=== PATIENT | male | born 1970 | race American Indian/Alaskan Native ===

== ENCOUNTER → 2016-09-02 | Outpatient (CLI) | payer OTHER, MEDICAID | LOC: FIMAGING 13:18 | PROVIDERS: ATTEND Physician Assistant | DX: M53.82 Other specified dorsopathies, cervical region (principal); G82.20 Paraplegia, unspecified; M40.202 Unspecified kyphosis, cervical region; M99.71 Connective tissue and disc stenosis of intervertebral foramina of cervical region ==

== ENCOUNTER 2016-12-13 12:26 | Emergency (ER) | payer OTHER, MEDICAID ==
[2016-12-13 12:34] VITALS: BP 120/91; PULSE 74; RESP 18; TEMP 97.9; O2SAT 95
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
== END 2016-12-13 13:22 | disposition home or self-care (01) ==
DX: Z76.0 Encounter for issue of repeat prescription (principal)

== ENCOUNTER 2016-12-19 12:23 | Emergency (ER) | payer OTHER, MEDICAID ==
[2016-12-19 12:34] VITALS: O2SAT 98
[2016-12-19] MEDS ORDERED: NS 1,000 ML IV ONE (12:51)
[2016-12-19 13:20] LABS: % IMMATURE GRANULYOCYTES 0.4 % (0.0-1.1); ABSOLUTE IMMATURE GRANULOCYTES 0.03 10^3/uL (0.00-0.10); ADD DIFF? NO; ADD MORPH? NO; ADD SCAN? NO; ATYPICAL LYMPHOCYTE FLAG 0 (0-99); FRAGMENT RBC FLAG 0 (0-99); HEMATOCRIT 44.6 % (40.0-51.0); HEMOGLOBIN 15.4 g/dL (13.7-17.5); LEFT SHIFT FLG 0 (0-99); LIPEMIA HEMOLYSIS FLAG 90 (0-99); MEAN CELL HEMOGLOBIN 31.6 pg (27.9-34.1); MEAN CELL HEMOGLOBIN CONCENTR. 34.5 g/dL (32.4-36.7); MEAN CELL VOLUME 91.6 fL (81.5-99.8); MEAN PLATELET VOLUME 9.1 fL (8.7-11.7); PLATELET CLUMPS FLAG 10 (0-99); PLATELET COUNT 280 10^3/uL (150-400); RED BLOOD CELL COUNT 4.87 10^6/uL (4.40-6.38); RED CELL DISTRIBUTION WIDTH 13.2 % (11.5-15.2)
[2016-12-19 13:32] LABS: ANION GAP 12 mEq/L (8-16); CALCIUM 9.4 mg/dL (8.5-10.4); CARBON DIOXIDE 19 mEq/l (22-31); CHLORIDE 107 mEq/L (97-110); CREATININE 0.6 mg/dL (0.7-1.3); GLOMERULAR FILTRATION RATE > 60; GLUCOSE 144 mg/dL (70-100); POTASSIUM 4.4 mEq/L (3.5-5.2); SODIUM 138 mEq/L (134-144)
--- NOTE | 2016-12-19 13:33 | EDPHY ---
H & P Stated Complaint: Bright red blood per rectum Time Seen by Provider: 12/19/16 12:51 HPI/ROS: CHIEF COMPLAINT: Bright red blood per rectum HISTORY OF PRESENT ILLNESS: The patient presents the ED after a single episode of bright red blood per rectum. The patient is currently wheelchair-bound secondary to T4 paraplegia. The patient takes no aspirin or anticoagulants. The patient has no history of inflammatory bowel disease. He does have a history of rectal bleeding from hemorrhoids in the past. 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 The patient does occasionally have to perform digital stimulation for alleviating his constipation. The patient reported approximately a half a cup of bright red blood per rectum at 8 o'clock this morning. The patient has not had recurrent hematochezia. REVIEW OF SYSTEMS: A comprehensive 10 point review of systems is otherwise negative aside from elements mentioned in the history of present illness. 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 insulin diabetic - Social History Smoking Status: Never smoked - Physical Exam Exam: General Appearance: Alert, no distress Eyes: Pupils equal and round no pallor or injection ENT, Mouth: Mucous membranes moist Respiratory: There are no retractions, lungs are clear to auscultation Cardiovascular: Regular rate and rhythm Gastrointestinal: Soft nontender, palpable baclofen pump noted on anterior abdominal wall Rectal: Brown stool, no bleeding hemorrhoid, no obvious internal source of bleeding noted on digital exam Neurological: Chronic weakness lower extremity secondary to known T4 spinal cord injury Skin: Warm and dry, no rashes Musculoskeletal: Neck is supple nontender Extremities: symmetrical, full range of motion Constitutional: Initial Vital Signs Temperature (C) 36.6 C 12/19/16 12:29 Heart Rate 121 H 12/19/16 12:29 Respiratory Rate 17 12/19/16 12:29 Blood Pressure 137/92 H 12/19/16 12:29 O2 Sat (%) 98 12/19/16 12:29 O2 Delivery Mode Room Air Allergies/Adverse Reactions: ceftriaxone sodium [From Rocephin] Allergy (Severe, Verified 12/13/16 12:31) Anaphylaxis Penicillins Allergy (Severe, Verified 12/13/16 12:31) Swelling/neck,face,throat Home Medications: Medication Instructions Recorded Insulin 03/26/13 Insulin Aspart 04/19/13 traZODONE 08/05/15 Baclofen 08/15/15 Baclofen [Baclofen 20 mg (*)] 20 mg PO TID #30 tab 12/13/16 Medical Decision Making ED Course/Re-evaluation: The patient presents to the ED after a episode of resolved hematochezia at 8 o' clock this morning. In the ED there is no active bleeding. The patient is hemodynamically stable. His laboratory studies are unrevealing. The patient's hematocrit is stable. His occult blood is negative. At this point time I do feel the patient can be discharged home as he has no active bleeding. It is certainly possible he had some transient rectal trauma from digital stimulation verses constipation. The patient is comfortable returning to the emergency department for any recurrent hematochezia or other concerns. Differential Diagnosis: Differential diagnosis considered includes hematochezia, external hemorrhoid, internal hemorrhoid, upper GI bleed, lower GI bleeding, rectal laceration - Data Points Laboratory Results: Laboratory Results 12/19/16 13:05 12/19/16 13:05 12/19/16 12/19/16 12/19/16 Unknown 13:05 13:05 WBC RBC Hgb Hct MCV MCH MCHC RDW Plt Count MPV Neut % (Auto) Lymph % (Auto) [place] % (Auto) Eos % (Auto) Baso % (Auto) Nucleat RBC Rel Count Absolute Neuts (auto) Absolute Lymphs (auto) Absolute Monos (auto) Absolute Eos (auto) Absolute Basos (auto) Absolute Nucleated RBC Immature Gran % Immature Gran # PT 12.8 SEC SEC (12.0-15.0) INR 0.97 (0.83-1.16) APTT 27.2 SEC SEC (23.0-38.0) Sodium 138 mEq/L mEq/L (134-144) Potassium 4.4 mEq/L mEq/L (3.5-5.2) Chloride 107 mEq/L mEq/L (97-110) Carbon Dioxide 19 mEq/l L mEq/l (22-31) Anion Gap 12 mEq/L mEq/L (8-16) BUN 12 mg/dL mg/dL (7-23) Creatinine 0.6 mg/dL L mg/dL (0.7-1.3) Estimated GFR > 60 Glucose 144 mg/dL H mg/dL (70-100) Calcium 9.4 mg/dL mg/dL (8.5-10.4) Stool Occult Bld Scrn NEGATIVE (NEGATIVE) 12/19/16 13:05 WBC 8.07 10^3/uL 10^3/uL (3.80-9.50) RBC 4.87 10^6/uL 10^6/uL (4.40-6.38) Hgb 15.4 g/dL g/dL (13.7-17.5) Hct 44.6 % % (40.0-51.0) MCV 91.6 fL fL (81.5-99.8) MCH 31.6 pg pg (27.9-34.1) MCHC 34.5 g/dL g/dL (32.4-36.7) RDW 13.2 % % (11.5-15.2) Plt Count 280 10^3/uL 10^3/uL (150-400) MPV 9.1 fL fL (8.7-11.7) Neut % (Auto) 59.1 % % (39.3-74.2) Lymph % (Auto) 34.1 % % (15.0-45.0) [place] % (Auto) 3.7 % L % (4.5-13.0) Eos % (Auto) 2.0 % % (0.6-7.6) Baso % (Auto) 0.7 % % (0.3-1.7) Nucleat RBC Rel Count 0.0 % % (0.0-0.2) Absolute Neuts (auto) 4.77 10^3/uL 10^3/uL (1.70-6.50) Absolute Lymphs (auto) 2.75 10^3/uL 10^3/uL (1.00-3.00) Absolute Monos (auto) 0.30 10^3/uL 10^3/uL (0.30-0.80) Absolute Eos (auto) 0.16 10^3/uL 10^3/uL (0.03-0.40) Absolute Basos (auto) 0.06 10^3/uL 10^3/uL (0.02-0.10) Absolute Nucleated RBC 0.00 10^3/uL 10^3/uL (0-0.01) Immature Gran % 0.4 % % (0.0-1.1) Immature Gran # 0.03 10^3/uL 10^3/uL (0.00-0.10) PT INR APTT Sodium Potassium Chloride Carbon Dioxide Anion Gap BUN Creatinine Estimated GFR Glucose Calcium Stool Occult Bld Scrn Medications Given: Discontinued Medications Sodium Chloride (Ns) 1,000 mls @ 0 mls/hr IV ONCE ONE; Wide Open PRN Reason: Protocol Stop: 12/19/16 12:52 Last Admin: 12/19/16 13:15 Dose: 1,000 mls Departure - Departure Disposition: Home, Routine, Self-Care Clinical Impression: Hematochezia Condition: Good Instructions: Rectal Bleeding (ED) Additional Instructions: 1. Please return to the emergency department for any recurrent bleeding, severe abdominal pain, lightheadedness or other concerns. 2. Please follow up with your primary care provider as scheduled. Referrals: Leonora Grove, PAC [Primary Care Provider] - As per Instructions
[2016-12-19 13:40] LABS: INR 0.97 (0.83-1.16); PROTIME(PATIENT) 12.8 SEC (12.0-15.0)
[2016-12-19 13:41] LABS: APTT 27.2 SEC (23.0-38.0)
[2016-12-19 14:01] VITALS: BP 132/88; PULSE 114; RESP 16; TEMP 98.2
== END 2016-12-19 14:01 | disposition home or self-care (01) ==
DX: K92.1 Melena (principal); E11.9 Type 2 diabetes mellitus without complications; Z79.4 Long term (current) use of insulin

== ENCOUNTER → 2016-12-25 | Outpatient (CLI) | payer OTHER, MEDICAID | LOC: FIMAGING 11:42 | DX: Z01.818 Encounter for other preprocedural examination (principal) ==

== ENCOUNTER 2017-03-10 12:16 | Emergency (ER) | payer OTHER, MEDICAID ==
[2017-03-10 12:34] VITALS: RESP 16
[2017-03-10 12:52] LABS: COLOR YELLOW; LEUKOCYTE ESTERASE,URINE 1+ (NEGATIVE); NITRITE,URINE NEGATIVE (NEGATIVE)
[2017-03-10 13:00] LABS: MUCUS TRACE /lpf (NONE-1+); WBC,URINE 50-182 /hpf (0-3)
--- NOTE | 2017-03-10 14:00 | EDPHY ---
H & P Time Seen by Provider: 03/10/17 13:40 HPI/ROS: CHIEF COMPLAINT: Concerns regarding urinary tract infection HISTORY OF PRESENT ILLNESS: This is a 46-year-old male who is a T4 paraplegic presenting with concerns regarding a urinary tract infection. Patient recently had a urinary tract infection and was given a 7 day course of levofloxacin. He reports that he had a 2 day break in his antibiotic course. His symptoms did not improve. He continues to have some discomfort in the perineal area. He discussed the situation with the urologist at [facility]. He has been advised to be using bladder irrigation to control his infection. Patient does self-catheterize. Despite this treatment, he reports pain in his perineum. He has had no documented fevers. No chills. No diaphoresis. No tachycardia. No vomiting. No diarrhea. No lightheadedness. REVIEW OF SYSTEMS: Aside from elements discussed in the HPI, a comprehensive 10-point review of systems was reviewed and is negative. PAST MEDICAL HISTORY: Paraplegia, bladder augmentation, insulin-dependent diabetic. SOCIAL HISTORY: Nonsmoker. VITAL SIGNS: see nurse's notes. GENERAL: Well-developed, well-nourished, in no acute distress. Patient is in wheelchair. HEENT: Normal, no discharge or icterus, moist mucous membranes. Neck: supple, FROM. LUNGS: Clear to auscultation. CARDIAC: Regular rate and rhythm. ABDOMEN: Soft, nontender, nondistended, bowel sounds normal. BACK: No CVA tenderness. EXTREMITIES: No edema. NEURO: Alert and oriented. SKIN: Warm and dry, no rash. Smoking Status: Never smoked Constitutional: Initial Vital Signs Temperature (C) 37 C 03/10/17 12:32 Heart Rate 93 03/10/17 12:32 Respiratory Rate 16 03/10/17 12:32 Blood Pressure 124/85 H 03/10/17 12:32 O2 Sat (%) 99 03/10/17 12:32 O2 Delivery Mode Room Air Allergies/Adverse Reactions: ceftriaxone sodium [From Rocephin] Allergy (Severe, Verified 03/10/17 12:36) Anaphylaxis Penicillins Allergy (Severe, Verified 03/10/17 12:36) Swelling/neck,face,throat Home Medications: Medication Instructions Recorded Insulin 03/26/13 Insulin Aspart 04/19/13 traZODONE 08/05/15 Baclofen 08/15/15 METHENAMINE MANDELATE 03/10/17 levOFLOXACIN [Levofloxacin] 750 mg PO DAILY #14 tablet 03/10/17 MDM/Departure - [facility] [place] Medications Given: Discontinued Medications Levofloxacin (Levaquin) 750 mg PO EDNOW ONE PRN Reason: Protocol Stop: 03/10/17 13:57 Last Admin: 03/10/17 14:13 Dose: 750 mg ED Course/Re-evaluation: Urinalysis was obtained, with many white cells. No bacteria seen. This will be sent for culture. Patient was given a 14 day course of levofloxacin. We also discussed at length the need for follow-up with the urologist in the [place] area. Patient may need to be on daily suppressive therapy. Patient looks well. No evidence for pyelonephritis, sepsis, urosepsis, kidney stone, or genital infection. - Depart Disposition: Home, Routine, Self-Care Clinical Impression: Cystitis Urinary tract infection Qualifiers: Urinary tract infection type: acute cystitis Hematuria presence: without hematuria Qualified Code(s): N30.00 - Acute cystitis without hematuria Condition: Good Instructions: Urinary Tract Infection in Men (ED) Additional Instructions: 1. The urine today will be sent for culture. Your previous Klebsiella infections were sensitive to levofloxacin. 2. Please take levofloxacin 750 mg daily for 14 days. 3. Please follow up with a urologist here in [place]. You been given the name of Dr. Moshe Chaney, who was on-call today for rest for Urology. You may also try to contact Dr. Yao Hernandez if you have seen him previously. 4. Please return to the emergency department if you're not improving, especially if he develops fevers, sugars which are difficult to control, nausea , vomiting, back pain, or other concerns. Prescriptions: levOFLOXACIN [Levofloxacin] 750 mg PO DAILY #14 tablet Referrals: Leonora Grove, PAC [Primary Care Provider] - As per Instructions
[2017-03-10 14:21] VITALS: BP 121/80; PULSE 89; TEMP 98.6; O2SAT 98
== END 2017-03-10 14:18 | disposition home or self-care (01) ==
DX: N30.00 Acute cystitis without hematuria (principal); E11.9 Type 2 diabetes mellitus without complications; B96.89 Other specified bacterial agents as the cause of diseases classified elsewhere; Z79.4 Long term (current) use of insulin

== ENCOUNTER 2017-03-31 11:48 | Emergency (ER) | payer OTHER, MEDICAID ==
[2017-03-31 13:10] LABS: COLOR RED; LEUKOCYTE ESTERASE,URINE 1+ (NEGATIVE); NITRITE,URINE POSITIVE (NEGATIVE)
[2017-03-31 13:15] LABS: BACTERIA 4+ /hpf (NONE SEEN); MUCUS 1+ /lpf (NONE-1+); WBC,URINE 50-182 /hpf (0-3)
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
[2017-03-31] MEDS ORDERED: CEPHALEXIN 500 MG CAP PO ONE (13:41)
[2017-03-31 13:52] VITALS: BP 119/78; PULSE 81; RESP 16; TEMP 98.4; O2SAT 97
== END 2017-03-31 13:52 | disposition home or self-care (01) ==
DX: N30.01 Acute cystitis with hematuria (principal); E11.9 Type 2 diabetes mellitus without complications; B96.1 Klebsiella pneumoniae [K. pneumoniae] as the cause of diseases classified elsewhere; Z79.4 Long term (current) use of insulin

== ENCOUNTER 2017-04-20 14:42 | Emergency (ER) | payer OTHER, MEDICAID ==
[2017-04-20 14:59] VITALS: RESP 18; TEMP 99.3; O2SAT 97
--- NOTE | 2017-04-20 17:39 | EDPHY ---
H & P Time Seen by Provider: 04/20/17 17:06 HPI/ROS: CHIEF COMPLAINT: Urinary frequency, medication refill HISTORY OF PRESENT ILLNESS: Patient is a 46-year-old male paraplegic who self cath with recurrent UTI that presents emergency department with typical UTI symptoms. He has been seen by me previously for similar symptoms. Patient states he has been having pressure and sweats. He denies fever. No vomiting. No pain. Patient reports that he has the causative agent from an outpatient office, enterococcus. He does not have sensitivities. REVIEW OF SYSTEMS: My complete review of systems is negative except as mentioned in the HPI. Past Medical/Surgical History: Includes T4 paraplegia, diabetes Past surgical history: Includes bladder augmentation, baclofen pump Social history: The patient denies alcohol drug use Smoking Status: Never smoked Physical Exam: Vitals noted. 37.4. GENERAL: Wheelchair bound. Well-appearing. no acute distress, alert. HEENT: Eyes normal to inspection, normal pharynx, no signs of dehydration. NECK: No thyromegaly, no lymphadenopathy, supple. RESPIRATORY: Clear to auscultation bilaterally, no rales, rhonchi or wheezing. CVS: Regular rate and rhythm, no rubs, murmurs, or gallops. ABDOMEN: Soft, nontender, nondistended, no organomegaly. Right lower baclofen pump. BACK: Normal to inspection, no CVA tenderness. SKIN: Normal color, no rash, warm, dry. No pallor. EXTREMITIES: No pedal edema, no calf tenderness, no Homans sign or cords, no joint swelling. NEURO/PSYCH: Alert and oriented x3, normal mood and affect. Wheelchair bound. Uses upper extremities. Constitutional: Initial Vital Signs Temperature (C) 37.4 C 04/20/17 14:56 Heart Rate 85 04/20/17 14:56 Respiratory Rate 18 04/20/17 14:56 Blood Pressure 146/99 H 04/20/17 14:56 O2 Sat (%) 97 04/20/17 14:56 O2 Delivery Mode Room Air Allergies/Adverse Reactions: ceftriaxone sodium [From Rocephin] Allergy (Severe, Verified 03/31/17 11:52) Anaphylaxis Penicillins Allergy (Severe, Verified 03/31/17 11:52) Swelling/neck,face,throat Home Medications: Medication Instructions Recorded Insulin 03/26/13 Insulin Aspart 04/19/13 traZODONE 08/05/15 Nitrofurantoin Macrobid [Macrobid] 100 mg PO BID #14 cap 04/20/17 Medical Decision Making ED Course/Re-evaluation: I discussed etiologies with the patient. Patient does not want to give a repeat urine in the emergency department as he states he has the results. I paged Infectious Disease and spoke with Dr. Key Hercules. Because we do not have sensitivities, she recommended the patient be placed on amoxicillin. However it is noted that he has a penicillin allergy. He will be placed on Macrobid. It is noted that he has been on Macrobid previously with some resistance. Patient was given a prescription of amoxicillin. He will follow up with his physician tomorrow to determine sensitivities. He was also given a prescription of Pyridium. He is given warnings prior to leaving. Differential Diagnosis: My differential includes but is not limited to urinary tract infection, cystitis , pyelonephritis, bacteremia, sepsis Departure - Departure Disposition: Home, Routine, Self-Care Clinical Impression: Urinary tract infection Qualifiers: Urinary tract infection type: acute cystitis Hematuria presence: without hematuria Qualified Code(s): N30.00 - Acute cystitis without hematuria Condition: Good Instructions: Urinary Tract Infection in Men (ED) Additional Instructions: You need to call your physician's office tomorrow to find out the sensitivities of your infection. In the meantime you been placed on amoxicillin at the recommendation of Dr. Key Hercules from Infectious Disease. Return with worsening symptoms or concerns. Referrals: Leonora Grove, PAC [Primary Care Provider] - 1 day without fail Prescriptions: Nitrofurantoin Macrobid [Macrobid] 100 mg PO BID #14 cap
[2017-04-20] MEDS ORDERED: NITROFURANTOIN 100MG PREPACK#2 BTL TAKEHOME ONE (17:43)
[2017-04-20] MEDS ORDERED: PHENAZOPYRIDINE HCL 200 MG TAB PO ONE (17:43)
[2017-04-20 18:05] VITALS: BP 136/78; PULSE 84
== END 2017-04-20 18:05 | disposition home or self-care (01) ==
DX: N30.00 Acute cystitis without hematuria (principal); E11.9 Type 2 diabetes mellitus without complications; Z79.4 Long term (current) use of insulin

== ENCOUNTER → 2017-04-28 | Outpatient (CLI) | payer OTHER, MEDICAID | LOC: FIMAGING 16:08 | DX: N31.9 Neuromuscular dysfunction of bladder, unspecified (principal) ==

== ENCOUNTER 2017-05-03 15:11 | Emergency (ER) | payer OTHER, MEDICAID ==
[2017-05-03 15:21] VITALS: TEMP 98.2
--- NOTE | 2017-05-03 16:24 | EDPHY ---
H & P Stated Complaint: UTI - hx, saw ID. 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 insulin diabetic - Social History Smoking Status: Never smoked Time Seen by Provider: 05/03/17 15:28 HPI/ROS: Chief complaint: Urinary tract infection History of present illness: This is a 46-year-old male who is a paraplegic, wheelchair-bound with history of recurrent urinary tract infections. He feels he has started to develope symptoms of another UTI with pressure and discomfort. He has had problems with urinary tract infections in the past. Most recently he was placed on Macrobid. He denies associated signs or symptoms including no fevers, no back pain, this feels like a typical urinary tract infection. Review of systems: A 10 point review of systems was obtained and other than described above was negative (Gilbert Bean) - Physical Exam Exam: General Appearance: Alert, nontoxic. Eyes: Pupils equal and round no injection. Respiratory: Chest is non tender, lungs are clear to auscultation. Cardiac: regular rate and rhythm Gastrointestinal: Abdomen is soft and non tender, no masses, bowel sounds normal. Musculoskeletal: Neck is supple and non tender. Extremities have full range of motion and are non tender. Skin: No rashes or lesions. Neurological: Alert and oriented x4. Moving upper extremities well. (Gilbert Bean) Constitutional: Initial Vital Signs Temperature (C) 36.8 C 05/03/17 15:19 Heart Rate 93 05/03/17 15:19 Respiratory Rate 16 05/03/17 15:19 Blood Pressure 112/75 05/03/17 15:19 O2 Sat (%) 99 05/03/17 15:19 O2 Delivery Mode Room Air Allergies/Adverse Reactions: ceftriaxone sodium [From Rocephin] Allergy (Severe, Verified 03/31/17 11:52) Anaphylaxis Penicillins Allergy (Severe, Verified 03/31/17 11:52) Swelling/neck,face,throat Home Medications: Medication Instructions Recorded Insulin 03/26/13 Insulin Aspart 04/19/13 traZODONE 08/05/15 Nitrofurantoin Macrobid [Macrobid] 100 mg PO BID #14 cap 04/20/17 Phenazopyridine HCl [Pyridium] 100 mg PO TID #6 tab 04/20/17 Baclofen 05/03/17 Cephalexin [Keflex] 500 mg PO TID 10 Days cap 05/03/17 Medical Decision Making ED Course/Re-evaluation: Patient is discussed with my secondary supervising physician Dr. Jennifer Lim. Patient presents to the emergency department concerned he is developing symptoms consistent with a urinary tract infection. Self catheterized urine is concerning for an infection. He has recently been on Macrobid. Review of most recent urine culture obtained shows that he has Klebsiella that is resistant to Macrobid. In discussion with him on choosing an appropriate antibiotic we have discussed Bactrim versus Keflex. He states Bactrim usually does not work. Although he has a severe reaction to Rocephin he has had penicillins recently and most importantly he has had Keflex recently and has tolerated it well. Most recent urine culture from beginning of March shows sensitivity to cephalosporins. He is started on Keflex for urinary tract infection. He is asked to follow up with his urologist for further evaluation and care. Urine culture is pending. Return precautions are given. Patient voiced understanding and agreement with plan. (Gilbert Bean) Differential Diagnosis: Included but not limited to acute cystitis, acute pyelonephritis, chronic urinary tract infection from self catheterization, (Gilbert Bean) Other Provider: The patient was evaluated and managed by the Physician Adjuster P[employer]/ Nurse Practitioner. I discussed the patient's presentation and course with the midlevel provider with them and agree with the evaluation. My co-signature indicates that I have reviewed this chart and I agree with the findings and plan of care as documented. I am the secondary supervising physician. (Jennifer Lim) Departure - Departure Disposition: Home, Routine, Self-Care Clinical Impression: Urinary tract infection Qualifiers: Urinary tract infection type: site unspecified Hematuria presence: with hematuria Qualified Code(s): N39.0 - Urinary tract infection, site not specified Condition: Good Instructions: Urinary Tract Infection in Men (ED) Additional Instructions: Follow-up with your urologist or primary care doctor for recheck If symptoms worsen or new symptoms develop return to the emergency room for recheck Referrals: Leonora Grove, PAC [Primary Care Provider] - As per Instructions Prescriptions: Cephalexin [Keflex] 500 mg PO TID 10 Days cap
[2017-05-03 16:28] VITALS: BP 120/80; PULSE 95; RESP 18; O2SAT 97
== END 2017-05-03 16:29 | disposition home or self-care (01) ==
DX: N39.0 Urinary tract infection, site not specified (principal); B96.89 Other specified bacterial agents as the cause of diseases classified elsewhere; E11.9 Type 2 diabetes mellitus without complications; Z79.4 Long term (current) use of insulin

== ENCOUNTER 2017-06-26 14:22 | Emergency (ER) | payer OTHER, MEDICAID ==
--- NOTE | 2017-06-26 14:33 | EDPHY ---
H & P Stated Complaint: UTI CONCERNS HPI/ROS: CHIEF COMPLAINT: Malodorous urine, lower abdominal discomfort HISTORY OF PRESENT ILLNESS: The patient is a 47 y/o male with paraplegia complaining of malodorous, cloudy urine and lower abdominal discomfort for the last few days. He self-caths and has been flushing frequently to treat symptoms without improvement. He started to feel generally ill with abdominal pressure that feels similar to prior UTIs, so he came to the ED for evaluation. He denies fever, back pain, or other symptoms. He has been on prophylactic antibiotics in the past, but states he has not been taking anything for the last month. He was prescribed Keflex in April and Macrobid in March of this year for UTIs. REVIEW OF SYSTEMS: A ten point review of systems was performed and is negative with the exception of the items mentioned in the HPI. Past medical history: 1. T4 paraplegia since 1996, wheelchair-bound 2. Recurrent UTIs 3. Insulin-dependent diabetes Past surgical history: 1. Bladder augmentation Family history: Noncontributory Social history: PCP: Leonora Grove at [facility]. [place] [facility] Prior medical records reviewed including ED visit in 05/03/17 for UTI. General Appearance: Alert. Vital signs reviewed. Heart rate 110. Eyes: Pupils equal and round, no conjunctival injection, no discharge. Anicteric. Neck: No lymphadenopathy. Respiratory: Lungs are clear to auscultation; no wheezes, rales, or rhonchi. Cardiovascular: Regular rate and rhythm; no murmur, rub, or gallop. Gastrointestinal: Abdomen is soft and nontender, no masses or organomegaly, bowel sounds normal. Skin: Warm and dry, no rashes on exposed skin, normal color. Back: No CVAT Extremities: No lower extremity edema, no calf tenderness or swelling. Neurological: Alert and oriented. Moving upper extremities easily and equally. Sitting in wheelchair. Psychiatric: Normal affect. - Personal History Current Tetanus Diphtheria and Acellular Pertussis (TDAP): Yes Tetanus Vaccine Date: 2013 - Medical/Surgical History Hx Asthma: No Hx Chronic Respiratory Disease: No Hx Diabetes: Yes Hx Cardiac Disease: No Hx Renal Disease: No Hx Cirrhosis: No Hx Alcoholism: No Hx HIV/AIDS: No Hx Splenectomy or Spleen Trauma: No Other PMH: t4 paraplegic-1997, IDDM; bladder augmentation; baclofen pump. insulin pump - Social History Smoking Status: Never smoked Constitutional: Initial Vital Signs Temperature (C) 36.5 C 06/26/17 14:27 Heart Rate 110 H 06/26/17 14:27 Respiratory Rate 16 06/26/17 14:27 Blood Pressure 116/76 06/26/17 14:27 O2 Sat (%) 96 06/26/17 14:27 O2 Delivery Mode Room Air Allergies/Adverse Reactions: ceftriaxone sodium [From Rocephin] Allergy (Severe, Verified 06/26/17 14:25) Anaphylaxis Penicillins Allergy (Severe, Verified 06/26/17 14:25) Swelling/neck,face,throat Home Medications: Medication Instructions Recorded Insulin 03/26/13 Insulin Aspart 04/19/13 traZODONE 08/05/15 Baclofen 05/03/17 Cephalexin [Keflex] 500 mg PO TID #30 cap 06/26/17 Medical Decision Making ED Course/Re-evaluation: This is a pleasant 47 y/o male with paraplegia at the T4 level who presents with standard UTI symptoms for him including malodorous urine and abdominal discomfort with pressure. He is not currently on antibiotics. He is afebrile here without obvious CVA tenderness, though exam limited by paraplegia. Plan for UA. UA indicative of UTI. I do not suspect pyelonephritis. He has self- catheterized for years and I do not question his technique. I do not suspect an intra-abdominal infection. He has successfully taken Keflex for UTI treatment ( in March of this year) and this will be prescribed today. Culture sent. He was tachycardic at triage, not at time of my exam and not at discharge. - Data Points Medications Given: Discontinued Medications Cephalexin (Keflex 500 Mg Prepack#4) 1 btl TAKEHOME EDNOW ONE PRN Reason: Protocol Stop: 06/26/17 15:49 Last Admin: 06/26/17 15:54 Dose: 1 btl Departure - Departure Disposition: Home, Routine, Self-Care Clinical Impression: Urinary tract infection Qualifiers: Urinary tract infection type: catheter-associated UTI Indwelling urinary catheter type: unspecified Encounter type: initial encounter Qualified Code(s): T83.511A - Infection and inflammatory reaction due to indwelling urethral catheter, initial encounter Condition: Good Instructions: Urinary Tract Infection in Men (ED) Additional Instructions: 1. Take _Keflex__ as prescribed. Be sure to complete the entire prescription. 2. Use Tylenol and ibuprofen as directed if needed for pain or fever over the next few days. 3. Follow up with your primary care provider for unimproved symptoms over the next few days. 4. Return to the ED for worsening of condition. Referrals: Leonora Grove, PAC [Primary Care Provider] - As per Instructions Prescriptions: Cephalexin [Keflex] 500 mg PO TID #30 cap Report Scribed for: Kelly Lim Report Scribed by: Taryn Costa Date of Report: 06/26/17 Time of Report: 14:45 Physician Review and Approval Statement: 06/26/17 14:33 Portions of this note were transcribed by the medical sociologist. I, Dr. Kelly Lim, personally performed the history, physical exam, and medical decision- making; and confirmed the accuracy of the information in the transcribed note.
[2017-06-26] MEDS ORDERED: CEPHALEXIN 500MG PREPACK#4 BTL TAKEHOME ONE (15:48)
[2017-06-26 15:52] VITALS: BP 109/68; PULSE 98; RESP 19; TEMP 98.2; O2SAT 95
== END 2017-06-26 15:56 | disposition home or self-care (01) ==
DX: T83.511A Infection and inflammatory reaction due to indwelling urethral catheter, initial encounter (principal); E11.9 Type 2 diabetes mellitus without complications; Z79.4 Long term (current) use of insulin; Y73.2 Prosthetic and other implants, materials and accessory gastroenterology and urology devices associated with adverse incidents

== ENCOUNTER 2017-07-12 13:39 | Emergency (ER) | payer OTHER, MEDICAID ==
[2017-07-12 13:58] VITALS: TEMP 98.6
--- NOTE | 2017-07-12 15:59 | EDPHY ---
General Narrative: CHIEF COMPLAINT: UTI HISTORY OF PRESENT ILLNESS: Patient presents with complaints of thinking that he still has a urinary tract infection. Patient has had chronic UTIs ever since his spinal cord injury from 1996. Most recently he has had some feeling of bladder discomfort. He is a T4 complete spinal cord injury with minimal sensation of the bladder. He says he was here 2 weeks ago and diagnosed with UTI. He was started on Keflex. He was contacted 2 days later and switch to Bactrim. He has completed his therapy and still has complaints. He has got moderate discomfort. No fever. No vomiting. No nausea. No blood in the urine. He performs self catheterization for every urination. His urologist Dr. Hernandez. No other associated complaints or modifying factors. REVIEW OF SYSTEMS: Ten systems reviewed and are negative unless otherwise noted in the HPI PCP: Dr. Grove SPECIALISTS: Dr. Hernandez PAST MEDICAL HISTORY: T4 complete spinal cord injury, diabetes mellitus, autoimmune dysfunction PAST SURGICAL HISTORY: No recent surgery SOCIAL HISTORY: Nonsmoker. FAMILY HISTORY: Noncontributory EXAMINATION General Appearance: Alert, no distress, wheelchair Head: normocephalic, atraumatic Eyes: Pupils equal and round, no conjunctival pallor or injection ENT, Mouth: Mucous membranes moist Neck: Normal inspection, supple, non-tender Respiratory: No retractions or distress Cardiovascular: Regular rate. Good signs of perfusion Gastrointestinal: Abdomen is soft and nondistended. Unable to test tenderness. There is no tympany rigidity. Neurological: A&O, nonfocal, normal gait Skin: Warm and dry, no rash. No petechiae or purpura Extremities: Baseline range of motion Psychiatric: Mood and affect normal DIFFERENTIAL DIAGNOSES: Including but not limited to UTI, cystitis, pyelonephritis, chronic colonization MDM: 4:00 p.m. Feelings of urinary tract infection in a patient with complicated urologic history. He does have evidence of recurrent UTIs by urine cultures. Most recent culture was positive for E coli that was susceptible to both Keflex and Bactrim, both of which he has been on. He still feels as though he has a UTI. This is difficult for him to describe given his difficult sensory status. He has normal vital signs and appears to be in no acute distress. Urinalysis is equivocal with bacteria but no leukocyte esterase or nitrites. 4:30 p.m. Case discussed with Dr. Miner. He recommends that I consult Urology for assistance. 4:35 p.m. Case discussed with urologist Dr. Simpson. We reviewed the patient's history, recent laboratory studies and micro results. He recommends repeat culture from today's urinalysis. He recommends no new antibiotic coverage given the patient' s lack of toxicity. He recommends the patient be seen soon by Urology. He will communicate this discussion to Dr. Hernandez. I discussed this with the patient patient is agreeable to this plan. This time I will discharge him home with Keflex but increased to four times daily from his current three times daily. He will contact his urologist for outpatient follow-up. We discussed ED precautions for worsening symptoms, flank pain, fever, vomiting SUPERVISION: Patient was independently examined, but I discussed the case with my secondary supervising physician Dr. Miner - History Smoking Status: Never smoked - Objective Vital Signs: Initial Vital Signs Temperature (C) 98.6 F 07/12/17 13:56 Heart Rate 76 07/12/17 13:56 Respiratory Rate 17 07/12/17 13:56 Blood Pressure 105/75 07/12/17 13:56 O2 Sat (%) 98 07/12/17 13:56 O2 Delivery Mode Room Air Allergies/Adverse Reactions: ceftriaxone sodium [From Rocephin] Allergy (Severe, Verified 07/12/17 13:56) Anaphylaxis Penicillins Allergy (Severe, Verified 07/12/17 13:56) Swelling/neck,face,throat Home Medications: Medication Instructions Recorded Insulin 03/26/13 Insulin Aspart 04/19/13 traZODONE 08/05/15 Baclofen 05/03/17 Cephalexin [Keflex] 500 mg PO TID #30 cap 06/26/17 Cephalexin [Keflex (*)] 500 mg PO QID #30 cap 07/12/17 Laboratory Results: 07/12/17 13:58 Urine Color PALE YELLOW Urine Appearance HAZY Urine pH 5.0 (5.0-7.5) Ur Specific [place] 1.015 (1.002-1.030) Urine Protein NEGATIVE (NEGATIVE) Urine Ketones NEGATIVE (NEGATIVE) Urine Blood 1+ H (NEGATIVE) Urine Nitrate NEGATIVE (NEGATIVE) Urine Bilirubin NEGATIVE (NEGATIVE) Urine Urobilinogen NEGATIVE EU EU (0.2-1.0) Ur Leukocyte Esterase NEGATIVE (NEGATIVE) Urine RBC 1-3 /hpf /hpf (0-3) Urine WBC 10-15 /hpf H /hpf (0-3) Ur Epithelial Cells TRACE /lpf /lpf (NONE-1+) Urine Bacteria 3+ /hpf H /hpf (NONE SEEN) Urine Mucus TRACE /lpf /lpf (NONE-1+) Urine Glucose 1+ H (NEGATIVE) Departure - Departure Disposition: Home, Routine, Self-Care Clinical Impression: UTI (urinary tract infection) Qualifiers: Urinary tract infection type: site unspecified Hematuria presence: with hematuria Qualified Code(s): N39.0 - Urinary tract infection, site not specified ; R31.9 - Hematuria, unspecified; R31.9 - Hematuria, unspecified Condition: Good Instructions: Urinary Tract Infection in Men (ED) Additional Instructions: 1. Medication as prescribed, changing dose to 4 times daily 2. Contact your urologist for outpatient 3. ED precautions as discussed Referrals: Leonora Grove PAC [Primary Care Provider] - As per Instructions Norris Hernandez MD [Medical Doctor] - As per Instructions Prescriptions: Cephalexin [Keflex (*)] 500 mg PO QID #30 cap
[2017-07-12 16:55] VITALS: BP 121/82; PULSE 86; RESP 14; O2SAT 97
== END 2017-07-12 16:54 | disposition home or self-care (01) ==
DX: N39.0 Urinary tract infection, site not specified (principal); B96.89 Other specified bacterial agents as the cause of diseases classified elsewhere; E11.9 Type 2 diabetes mellitus without complications; Z79.4 Long term (current) use of insulin

== ENCOUNTER 2017-07-28 15:30 | Inpatient (IN) | payer OTHER, MEDICAID ==
--- NOTE | 2017-07-28 15:46 | EDPHY ---
H & P Stated Complaint: 3 months intractable uti Time Seen by Provider: 07/28/17 15:45 HPI/ROS: HPI: This is a 47-year-old male who presents with Chief Complaint: 3 months intractable uti Location: Quality: Dysuria Duration: 3 months Signs and Symptoms: no fever, no nausea, no vomiting, no hematemesis, no blood in stool, no abdominal bloating, no diarrhea, no back pain, no urinary symptoms , no testicular/groin pain, no indigestion, no chest pain, no shortness of breath Timing: Acute on chronic Severity: Moderate Context: Patient has a history of T4 paraplegia since 1996, insulin pump dependent diabetes mellitus, status post bladder augmentation, Baclofen pump presents today to the emergency room with complaints of malodorous cloudy urine , generalized chills, low-grade fever, fatigue and not feeling well. He reports that he was seen in this emergency room at the end of May as well as 2 weeks ago. 06/26/2017 grew E coli sensitive to cephalosporin was given Keflex. 07/12/2017 grew Klebsiella sensitive to fluoroquinolones; given Cipro. Patient reports approximately 3 days after completing the ciprofloxacin course, he started to developed cloudy, malodorous urine. He is extremely frustrated as he is visually in his aseptic technique with self catheterization. He has followed up with Urology per recommendation. He is on antibiotic suppression therapy but unsure of the name. Uses a wheelchair to aid ambulation. Continuous blood sugar 160-200s. Modifying Factors: See above Comment: ROS: see HPI Constitutional: No fever, + chills, no weight loss Eyes: No blurred vision Respiratory: No shortness of breath, no cough Cardiovascular: No chest pain, no palpitations Gastrointestinal: No nausea, no vomiting, no diarrhea, no hematemesis, no blood in stool Genitourinary: + dysuria, no blood in urine Extremities: No myalgias, no edema Neurologic: No weakness, no numbness Skin: No rashes, no petechiae Hematologic: No bruising, no bleeding MEDICAL/SURGICAL/SOCIAL HISTORY: Medical/surgical history: t4 paraplegic-1996, IDDM; bladder augmentation; baclofen pump. insulin pump Social history: Unemployed. On disability. CONSTITUTIONAL: Extremely pleasant chronically ill-appearing male, awake and alert, no obvious distress HEENT: Atraumatic and normocephalic, PERRL, EOMI. Tympanic membranes clear. Oropharynx clear, no exudate and moist pink mucosa. Airway patent. No lymphadenopathy. No meningismus. Cardiovascular: Normal S1/S2, tachycardia, regular rhythm, without murmur rub or gallop. PULMONARY/CHEST: Symmetrical and nontender. Clear to auscultation bilaterally. Good air movement. No accessory muscle usage. ABDOMEN: Soft, nondistended, nontender, no rebound, no guarding, no peritoneal signs, no masses or organomegaly. No CVAT. EXTREMITIES: 2/2 radial pulses, upper extremities strength 5/5, sitting in a wheelchair; paraplegia at T4. no clubbing, no cyanosis or edema. NEUROLOGICAL: no focal neuro deficits. GCS 15. SKIN: Warm and dry, no erythema. no rash. Good capillary refill. Source: Patient, Old records Exam Limitations: No limitations - Personal History Current Tetanus/Diphtheria Vaccine: Yes Tetanus Vaccine Date: 2013 - Medical/Surgical History Hx Asthma: No Hx Chronic Respiratory Disease: No Hx Diabetes: Yes Hx Cardiac Disease: No Hx Renal Disease: No Hx Cirrhosis: No Hx Alcoholism: No Hx HIV/AIDS: No Hx Splenectomy or Spleen Trauma: No Other PMH: t4 paraplegic-1996, IDDM; bladder augmentation; baclofen pump. insulin pump - Social History Smoking Status: Never smoked Constitutional: Initial Vital Signs Temperature (C) 36.8 C 07/28/17 15:34 Heart Rate 104 H 07/28/17 15:34 Respiratory Rate 17 07/28/17 15:34 Blood Pressure 136/79 H 07/28/17 15:34 O2 Sat (%) 98 07/28/17 15:34 O2 Delivery Mode Room Air Allergies/Adverse Reactions: ceftriaxone sodium [From Rocephin] Allergy (Severe, Verified 07/28/17 15:33) Anaphylaxis Penicillins Allergy (Severe, Verified 07/28/17 15:33) Swelling/neck,face,throat Home Medications: Medication Instructions Recorded traZODone [traZODone 150MG (*)] 150 mg PO HS 08/05/15 Baclofen 0 mg SC DAILY 05/03/17 Insulin Aspart [novoLOG] 0 units SC DAILY 07/28/17 Medical Decision Making ED Course/Re-evaluation: Sepsis workup initiated with source from urine I understand the patient has chronic colonization but there has been a worsening his symptoms with tachycardia and lactic acidosis. Given 2 L normal saline per 30 ml/kg sepsis protocol and IV ertapenem based on review of prior cultures. ED decision to consult for admission this patient meets sepsis criteria presumed urine source and has failed outpatient therapy. Spoke with Dr. Cerrato who kindly accepts patient to be admitted and provide further care. repeat lactic acid 2 be drawn after IV fluids and if improved, patient can be admitted to med surg. This patient was seen under the supervision of my secondary supervising physician. I evaluated care for this patient independently. Discussed this patient with Dr. Valenzuela who did not see the patient. Differential Diagnosis: Differential diagnosis includes but is not limited to urinary tract infection, chronic colonization, abscess formation, prostatitis, sepsis. - Data Points Laboratory Results: Laboratory Results 07/28/17 16:15 07/28/17 16:15 07/28/17 07/28/17 07/28/17 16:30 16:30 16:15 WBC RBC Hgb Hct MCV MCH MCHC RDW Plt Count MPV Neut % (Auto) Lymph % (Auto) [place] % (Auto) Eos % (Auto) Baso % (Auto) Nucleat RBC Rel Count Absolute Neuts (auto) Absolute Lymphs (auto) Absolute Monos (auto) Absolute Eos (auto) Absolute Basos (auto) Absolute Nucleated RBC Immature Gran % Immature Gran # PT 12.2 SEC SEC (12.0-15.0) INR 0.88 (0.83-1.16) APTT 27.9 SEC SEC (23.0-38.0) VBG Lactic Acid 2.3 mmol/L H mmol/L (0.7-2.1) Sodium 136 mEq/L mEq/L (135-145) Potassium 4.8 mEq/L mEq/L (3.5-5.2) Chloride 98 mEq/L mEq/L (97-110) Carbon Dioxide 26 mEq/l mEq/l (22-31) Anion Gap 12 mEq/L mEq/L (8-16) BUN 16 mg/dL mg/dL (7-23) Creatinine 0.6 mg/dL L mg/dL (0.7-1.3) Estimated GFR > 60 Glucose 210 mg/dL H mg/dL (70-100) Calcium 9.4 mg/dL mg/dL (8.5-10.4) Total Bilirubin 0.6 mg/dL mg/dL (0.1-1.4) Conjugated Bilirubin 0.2 mg/dL mg/dL (0.0-0.5) Unconjugated Bilirubin 0.4 mg/dL mg/dL (0.0-1.1) AST 22 IU/L IU/L (17-59) ALT 35 IU/L IU/L (21-72) Alkaline Phosphatase 113 IU/L IU/L (38-126) Total Protein 7.1 g/dL g/dL (6.3-8.2) Albumin 4.1 g/dL g/dL (3.5-5.0) Urine Color Urine Appearance Urine pH Ur Specific [place] Urine Protein Urine Ketones Urine Blood Urine Nitrate Urine Bilirubin Urine Urobilinogen Ur Leukocyte Esterase Urine RBC Urine WBC Ur Epithelial Cells Urine Bacteria Urine Mucus Urine Glucose 07/28/17 07/28/17 16:15 16:15 WBC 8.12 10^3/uL 10^3/uL (3.80-9.50) RBC 4.85 10^6/uL 10^6/uL (4.40-6.38) Hgb 15.7 g/dL g/dL (13.7-17.5) Hct 45.4 % % (40.0-51.0) MCV 93.6 fL fL (81.5-99.8) MCH 32.4 pg pg (27.9-34.1) MCHC 34.6 g/dL g/dL (32.4-36.7) RDW 12.8 % % (11.5-15.2) Plt Count 274 10^3/uL 10^3/uL (150-400) MPV 8.6 fL L fL (8.7-11.7) Neut % (Auto) 66.6 % % (39.3-74.2) Lymph % (Auto) 26.8 % % (15.0-45.0) [place] % (Auto) 4.4 % L % (4.5-13.0) Eos % (Auto) 1.4 % % (0.6-7.6) Baso % (Auto) 0.6 % % (0.3-1.7) Nucleat RBC Rel Count 0.0 % % (0.0-0.2) Absolute Neuts (auto) 5.40 10^3/uL 10^3/uL (1.70-6.50) Absolute Lymphs (auto) 2.18 10^3/uL 10^3/uL (1.00-3.00) Absolute Monos (auto) 0.36 10^3/uL 10^3/uL (0.30-0.80) Absolute Eos (auto) 0.11 10^3/uL 10^3/uL (0.03-0.40) Absolute Basos (auto) 0.05 10^3/uL 10^3/uL (0.02-0.10) Absolute Nucleated RBC 0.00 10^3/uL 10^3/uL (0-0.01) Immature Gran % 0.2 % % (0.0-1.1) Immature Gran # 0.02 10^3/uL 10^3/uL (0.00-0.10) PT INR APTT VBG Lactic Acid Sodium Potassium Chloride Carbon Dioxide Anion Gap BUN Creatinine Estimated GFR Glucose Calcium Total Bilirubin Conjugated Bilirubin Unconjugated Bilirubin AST ALT Alkaline Phosphatase Total Protein Albumin Urine Color YELLOW Urine Appearance MODERATELY TURBID Urine pH 6.0 (5.0-7.5) Ur Specific [place] 1.013 (1.002-1.030) Urine Protein NEGATIVE (NEGATIVE) Urine Ketones NEGATIVE (NEGATIVE) Urine Blood 1+ H (NEGATIVE) Urine Nitrate NEGATIVE (NEGATIVE) Urine Bilirubin NEGATIVE (NEGATIVE) Urine Urobilinogen NEGATIVE EU EU (0.2-1.0) Ur Leukocyte Esterase 1+ H (NEGATIVE) Urine RBC 5-10 /hpf H /hpf (0-3) Urine WBC 25-50 /hpf H /hpf (0-3) Ur Epithelial Cells TRACE /lpf /lpf (NONE-1+) Urine Bacteria 4+ /hpf H /hpf (NONE SEEN) Urine Mucus TRACE /lpf /lpf (NONE-1+) Urine Glucose 1+ H (NEGATIVE) Medications Given: Discontinued Medications Ertapenem (Invanz) 1 gm IV EDNOW ONE PRN Reason: Protocol Stop: 07/28/17 17:08 Last Admin: 07/28/17 17:19 Dose: 1 gm Sodium Chloride (Ns) 1,000 mls @ 0 mls/hr IV ONCE ONE; Wide Open PRN Reason: Protocol Stop: 07/28/17 16:01 Last Admin: 07/28/17 16:38 Dose: 1,000 mls Departure - Departure Disposition: [facility] Clinical Impression: Sepsis due to urinary tract infection, Paraplegia at T4 level, Self- catheterizes urinary bladder Condition: Fair
[2017-07-28] MEDS ORDERED: NS 1,000 ML IV ONE ×2 (16:00→17:02)
[2017-07-28 16:47] LABS: PLATELET COUNT 274 10^3/uL (150-400)
[2017-07-28] MEDS ORDERED: ERTAPENEM 1 GM VIAL IV ONE (17:07)
[2017-07-28 17:22] LABS: INR 0.88 (0.83-1.16); PROTIME(PATIENT) 12.2 SEC (12.0-15.0)
[2017-07-28] MEDS ORDERED: ALBUTEROL 3 ML DEYVIAL IH PRN (18:14)
[2017-07-28] MEDS ORDERED: ACETAMINOPHEN 325 MG TAB PO PRN (18:14)
[2017-07-28] MEDS ORDERED: ONDANSETRON DISINTEGRATING 4 MG TAB PO PRN (18:14)
[2017-07-28] MEDS ORDERED: ONDANSETRON 4 MG/2 ML VIAL IVP PRN (18:14)
[2017-07-28] MEDS ORDERED: NS 1,000 ML IV SCH (18:15)
--- NOTE | 2017-07-28 20:53 | PDGENHP ---
History and Physical - Chief Complaint diaphoresis, malaise, weakness, foul smelling urine - History of Present Illness This is a 47 yo T4 paraplegia with hx of recurrent UTI with polymicrobial cultures and poly resistance who p/w generalized malaise, fatigue, weakness, foul smelling urine, tactile fevers, and difficult to control glucose. He has a hx of Type I DM and has an insulin pump. In the E.D. he was found to have significant fluid deficit as well as UTI and he was started on Ertapenem which he tolerated well. His fluid status has improved slightly but he still has fluid deficit. He denies cough, SOB, N/V/D, abdominal pain or other. He typically self caths. He denies any wounds PMHx: T4 paraplegia IDDM-type one Insulin pump Baclofen pump Chronic UTI PSHx: Bladder Augmentation Baclofen pump insulin pum SocHx: disabled FmHx: NC History Information - Allergies/Home Medication List Allergies/Adverse Reactions: ceftriaxone sodium [From Rocephin] Allergy (Severe, Verified 07/28/17 15:33) Anaphylaxis Penicillins Allergy (Severe, Verified 07/28/17 15:33) Swelling/neck,face,throat Home Medications: traZODone [traZODone 150MG (*)] 150 mg PO HS 08/05/15 [Last Taken 07/27/17] Baclofen 0 mg SC DAILY 05/03/17 [Last Taken 07/28/17] Insulin Aspart [novoLOG] 0 units SC DAILY 07/28/17 [Last Taken 07/28/17] I have personally reviewed and updated: medical history, social history - Social History Smoking Status: Never smoked Review of Systems Review of Systems: ROS: 10pt was reviewed & negative except for what was stated in HPI & below Physical Exam Physical Exam: Temp Pulse Resp BP Pulse Ox 36.8 C 79 18 103/69 97 07/28/17 15:34 07/28/17 17:49 07/28/17 17:49 07/28/17 17:49 07/28/17 17:49 Constitutional: no apparent distress, appears nourished Eyes: PERRL, EOMI Ears, Nose, Mouth, Throat: hearing normal, dry mucous membranes, No moist mucous membranes Cardiovascular: regular rate and rhythym, No edema Respiratory: no respiratory distress, no rales or rhonchi, clear to auscultation Gastrointestinal: normoactive bowel sounds, soft, non-tender abdomen Genitourinary: no bladder fullness Skin: warm Neurologic: AAOx3 Psychiatric: interacting appropriately, not anxious, not encephalopathic Lymph, Heme, Immunologic: No petechiae Lab Data & Imaging Review 07/28/17 16:15 07/28/17 16:15 WBC 8.12 10^3/uL (3.80-9.50) 07/28/17 16:15 RBC 4.85 10^6/uL (4.40-6.38) 07/28/17 16:15 Hgb 15.7 g/dL (13.7-17.5) 07/28/17 16:15 Hct 45.4 % (40.0-51.0) 07/28/17 16:15 MCV 93.6 fL (81.5-99.8) 07/28/17 16:15 MCH 32.4 pg (27.9-34.1) 07/28/17 16:15 MCHC 34.6 g/dL (32.4-36.7) 07/28/17 16:15 RDW 12.8 % (11.5-15.2) 07/28/17 16:15 Plt Count 274 10^3/uL (150-400) 07/28/17 16:15 MPV 8.6 fL (8.7-11.7) L 07/28/17 16:15 Neut % (Auto) 66.6 % (39.3-74.2) 07/28/17 16:15 Lymph % (Auto) 26.8 % (15.0-45.0) 07/28/17 16:15 [place] % (Auto) 4.4 % (4.5-13.0) L 07/28/17 16:15 Eos % (Auto) 1.4 % (0.6-7.6) 07/28/17 16:15 Baso % (Auto) 0.6 % (0.3-1.7) 07/28/17 16:15 Nucleat RBC Rel Count 0.0 % (0.0-0.2) 07/28/17 16:15 Absolute Neuts (auto) 5.40 10^3/uL (1.70-6.50) 07/28/17 16:15 Absolute Lymphs (auto) 2.18 10^3/uL (1.00-3.00) 07/28/17 16:15 Absolute Monos (auto) 0.36 10^3/uL (0.30-0.80) 07/28/17 16:15 Absolute Eos (auto) 0.11 10^3/uL (0.03-0.40) 07/28/17 16:15 Absolute Basos (auto) 0.05 10^3/uL (0.02-0.10) 07/28/17 16:15 Absolute Nucleated RBC 0.00 10^3/uL (0-0.01) 07/28/17 16:15 Immature Gran % 0.2 % (0.0-1.1) 07/28/17 16:15 Immature Gran # 0.02 10^3/uL (0.00-0.10) 07/28/17 16:15 PT 12.2 SEC (12.0-15.0) 07/28/17 16:30 INR 0.88 (0.83-1.16) 07/28/17 16:30 APTT 27.9 SEC (23.0-38.0) 07/28/17 16:30 VBG Lactic Acid 1.6 mmol/L (0.7-2.1) D 07/28/17 18:52 Sodium 136 mEq/L (135-145) 07/28/17 16:15 Potassium 4.8 mEq/L (3.5-5.2) 07/28/17 16:15 Chloride 98 mEq/L (97-110) 07/28/17 16:15 Carbon Dioxide 26 mEq/l (22-31) 07/28/17 16:15 Anion Gap 12 mEq/L (8-16) 07/28/17 16:15 BUN 16 mg/dL (7-23) 07/28/17 16:15 Creatinine 0.6 mg/dL (0.7-1.3) L 07/28/17 16:15 Estimated GFR > 60 07/28/17 16:15 Glucose 210 mg/dL (70-100) H 07/28/17 16:15 Calcium 9.4 mg/dL (8.5-10.4) 07/28/17 16:15 Total Bilirubin 0.6 mg/dL (0.1-1.4) 07/28/17 16:15 Conjugated Bilirubin 0.2 mg/dL (0.0-0.5) 07/28/17 16:15 Unconjugated Bilirubin 0.4 mg/dL (0.0-1.1) 07/28/17 16:15 AST 22 IU/L (17-59) 07/28/17 16:15 ALT 35 IU/L (21-72) 07/28/17 16:15 Alkaline Phosphatase 113 IU/L (38-126) 07/28/17 16:15 Total Protein 7.1 g/dL (6.3-8.2) 07/28/17 16:15 Albumin 4.1 g/dL (3.5-5.0) 07/28/17 16:15 Procalcitonin 0.05 ng/mL (0.02-0.10) 07/28/17 16:30 Urine Color YELLOW 07/28/17 16:15 Urine Appearance MODERATELY TURBID 07/28/17 16:15 Urine pH 6.0 (5.0-7.5) 07/28/17 16:15 Ur Specific [place] 1.013 (1.002-1.030) 07/28/17 16:15 Urine Protein NEGATIVE (NEGATIVE) 07/28/17 16:15 Urine Ketones NEGATIVE (NEGATIVE) 07/28/17 16:15 Urine Blood 1+ (NEGATIVE) H 07/28/17 16:15 Urine Nitrate NEGATIVE (NEGATIVE) 07/28/17 16:15 Urine Bilirubin NEGATIVE (NEGATIVE) 07/28/17 16:15 Urine Urobilinogen NEGATIVE EU (0.2-1.0) 07/28/17 16:15 Ur Leukocyte Esterase 1+ (NEGATIVE) H 07/28/17 16:15 Urine RBC 5-10 /hpf (0-3) H 07/28/17 16:15 Urine WBC 25-50 /hpf (0-3) H 07/28/17 16:15 Ur Epithelial Cells TRACE /lpf (NONE-1+) 07/28/17 16:15 Urine Bacteria 4+ /hpf (NONE SEEN) H 07/28/17 16:15 Urine Mucus TRACE /lpf (NONE-1+) 07/28/17 16:15 Urine Glucose 1+ (NEGATIVE) H 07/28/17 16:15 Assessment & Plan Assessment: #?Sepsis due to UTI #Volume Deficit and Dehydration #lactic acidosis #Type 1 diabetic with insulin pump with difficulty controlling glucose since feeling ill #Acute on Chronic UTI with hx of polymicrobial cultures with poly resistance #PCN and Cephalosporin allergy Plan: -Admission to SDU -Additional IVF -Cont Ertapenem -Await cultures -consider ID consult -Lovenox for DVT proph total CCT is 60 minutes
[2017-07-28] MEDS ORDERED: NS 500 ML IV ONE (20:59)
[2017-07-29 06:03] LABS: PLATELET COUNT 267 10^3/uL (150-400)
[2017-07-29] MEDS: ENOXAPARIN 40 MG/0.4 ML SYR SC SCH (09:19)
[2017-07-29] MEDS: ERTAPENEM 1 GM VIAL IV SCH (09:33)
--- NOTE | 2017-07-29 11:00 | PDMN ---
Medical Necessity Medical necessity: est los>2mn for possible sepsis r/t acute on chronic UTI, w/ volume deficit and dehydration, and lactic acidosis; admit to ICU/SDU for IVF, IV abx, follow cx's, potential ID consult; comorbid T4 paraplegia, on baclofen pump, IDDM1 on insulin pump, and hx chronic UTI w hx polymicrobial cx's w/poly- resistance; per order and H&P 07/28/17
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
[2017-07-30 04:56] VITALS: RESP 16
[2017-07-30] MEDS: ENOXAPARIN 40 MG/0.4 ML SYR SC SCH (08:39)
[2017-07-30] MEDS: ERTAPENEM 1 GM VIAL IV SCH (08:41)
[2017-07-30 08:55] VITALS: BP 121/73; PULSE 61; TEMP 97.9; O2SAT 98
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
--- NOTE | 2017-07-30 15:11 | GDS ---
[f rep st] DISCHARGE SUMMARY DISCHARGE DIAGNOSES: 1. Sepsis secondary to urinary source. 2. Urinary tract infection with history of resistant organisms. 3. T4 paraplegia. 4. Type 1 diabetes. 5. History of recurrent urinary tract infection. HOSPITAL COURSE: Please see admission history and physical by Dr. Cristiano Cerrato. The patient presented with chills, diaphoresis and fever. He was found have a urinalysis consistent with urine infection. For some reason, the urine culture was not promptly sent; it has remained negative thus far, as were blood cultures. The patient has a history of Klebsiella ESBL that is sensitive to fluoroquinolones as well as a fluoroquinolone-resistant, Bactrim-sensitive E coli on past urine cultures. He received 2 doses of ertapenem with improvement in his clinical status. He was discharged home to complete a total 10-day course of antibiotics. His antibiotic regimen is Bactrim and levoflox to treat the most likely pathogens. Urine culture was sent and pending, likely to be negative given that he has received antibiotics. /[id number]/MODL MTDD
--- NOTE | 2017-07-30 16:40 | ASDISCHSUM ---
Discharge Information Plan Status: Medically Cleared to Leave: Discharge Date:07/30/2017 12:42 PM CM D/C Disposition: ADT D/C Disposition:Home, Routine, Self-Care Projected Discharge Date:07/30/2017 12:42 PM Transportation at D/C: Discharge Delay Reason: Follow-Up Date:07/30/2017 12:42 PM Discharge Slot: Final Diagnosis: Placement Information Patient Contact Information Contact Name:YAMILE Relationship:Mother Address: City:[place] Alternate Phone: State/Zip Code:[place] Email: Financial Information Financial Class: Primary Plan Desc:MEDICARE INPATIENT Primary Plan Number:[id number] Secondary Plan Desc:[place] Secondary Plan Number:[id number] Assessment Information Intervention Information
== END 2017-07-30 12:42 | disposition home or self-care (01) | DRG 872 ==
LOC: F1N 21:33
PROVIDERS: ADMIT Family Medicine; ATTEND Family Medicine
DX: A41.9 Sepsis, unspecified organism (principal); N39.0 Urinary tract infection, site not specified; E86.0 Dehydration; E10.9 Type 1 diabetes mellitus without complications; Z96.41 Presence of insulin pump (external) (internal); Z87.440 Personal history of urinary (tract) infections; G82.21 Paraplegia, complete; W34.00XS Accidental discharge from unspecified firearms or gun, sequela; Z99.3 Dependence on wheelchair
CPT/HCPCS: 96374; 97161-GP; G8981-GP-CH; G8982-GP-CH; G8983-GP-CH; J1335; J1650

== ENCOUNTER 2017-09-07 15:47 | Emergency (ER) | payer OTHER, MEDICAID ==
[2017-09-07 15:51] VITALS: BP 129/70; PULSE 77; RESP 20; TEMP 98.6; O2SAT 96
[2017-09-07] MEDS ORDERED: SULFAMETHOX/TMP 800/160 MG 1 TAB PO ONE (16:10)
--- NOTE | 2017-09-07 16:14 | EDPHY ---
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 Also has a history of diabetes and bladder augmentation and self caths. He was admitted last month for urosepsis. At that time cultures were not positive but he has a history of Klebsiella sensitive to fluoroquinolones as well as floor quinolone resistant E coli. He was given or ertapenem and then discharged on Bactrim and Levaquin. He did well with this. He states that he is having some hypersensitivity in his bladder area especially when he self caths. He has been trying to flush with sterile saline. He states this is often the 1st sign. He has not had any hematuria. No fevers. No foul-smelling urine. No abdominal pain, nausea vomiting. REVIEW OF SYSTEMS: Constitutional: denies: chills, fever, recent illness, recent injury EENTM: denies: blurred vision, double vision, nose congestion Respiratory: denies: cough, shortness of breath Cardiac: denies: chest pain, irregular heart rate, lightheadedness, palpitations Gastrointestinal/Abdominal: denies: abdominal pain, diarrhea, nausea, vomiting, blood streaked stools Genitourinary: See HPI Musculoskeletal: denies: joint pain, muscle pain Skin: denies: lesions, rash, jaundice, bruising Neurological: denies: headache, numbness, paresthesia, tingling, dizziness, weakness Hematologic/Lymphatic: denies: blood clots, easy bleeding, easy bruising Immunologic/allergic: denies: HIV/AIDS, transplant EXAM: GENERAL: Well-appearing, well-nourished and in no acute distress. HEAD: Atraumatic, normocephalic. EYES: Pupils equal round and reactive to light, extraocular movements intact, sclera anicteric, conjunctiva are normal. ENT: TMs normal, nares patent, oropharynx clear without exudates. Moist mucous membranes. NECK: Normal range of motion, supple without lymphadenopathy or JVD. LUNGS: Breath sounds clear to auscultation bilaterally and equal. No wheezes rales or rhonchi. HEART: Regular rate and rhythm without murmurs, rubs or gallops. ABDOMEN: Soft, nontender, normoactive bowel sounds. No guarding, no rebound. No masses appreciated. BACK: No CVA tenderness, no spinal tenderness, step-offs or deformities EXTREMITIES: Normal range of motion, no pitting or edema. No clubbing or cyanosis. NEUROLOGICAL: Wheelchair bound, no movement lower extremities. PSYCH: Normal mood, normal affect. SKIN: Warm, dry, normal turgor, no visible rashes or lesions. 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 insulin pump - Family History Significant Family History: No pertinent family hx - Social History Smoking Status: Never smoked Alcohol Use: Sober Drug Use: None Constitutional: Initial Vital Signs Temperature (C) 37 C 09/07/17 15:49 Heart Rate 77 09/07/17 15:49 Respiratory Rate 20 09/07/17 15:49 Blood Pressure 129/70 H 09/07/17 15:49 O2 Sat (%) 96 09/07/17 15:49 O2 Delivery Mode Room Air Allergies/Adverse Reactions: ceftriaxone sodium [From Rocephin] Allergy (Severe, Verified 09/07/17 15:48) Anaphylaxis Penicillins Allergy (Severe, Verified 09/07/17 15:48) Swelling/neck,face,throat Home Medications: Medication Instructions Recorded traZODone [traZODone 150MG (*)] 150 mg PO HS 08/05/15 Baclofen 0 mg SC DAILY 05/03/17 Insulin Aspart [novoLOG] 0 units SC DAILY 07/28/17 Sulfamethox/Tmp 800/160 mg 1 tab PO BID #14 tab 09/07/17 [Bactrim Ds] levOFLOXACIN [levAQUIN] 750 mg PO DAILY #10 tab 09/07/17 Medical Decision Making ED Course/Re-evaluation: The patient is well appearing. He is wanting to get on top of the infection early. We agreed to start him on Bactrim and Levaquin and send his urine for cultures. Patient will call in 2 days for results to see if he can stop any of the antibiotics or if there is any problem with the coverage. He currently is declining any further workup or testing at this time. Differential Diagnosis: Partial list of the Differential diagnosis considered include but were not limited to; urinary tract infection, pyelonephritis and although unlikely based on the history and physical exam, I also considered sepsis, obstruction, appendicitis. I discussed these differential diagnoses and the plan with the patient as well as the usual and expected course. The patient understands that the diagnosis is provisional and that in medicine we are not always correct and that further workup is often warranted. Usual and customary warnings were given. All of the patient's questions were answered. The patient was instructed to return to the emergency department should the symptoms at all worsen or return, otherwise to followup with the physician as we discussed. - Data Points Laboratory Results: 09/07/17 15:56 Urine Color YELLOW Urine Appearance HAZY Urine pH 7.0 (5.0-7.5) Ur Specific [place] 1.014 (1.002-1.030) Urine Protein NEGATIVE (NEGATIVE) Urine Ketones NEGATIVE (NEGATIVE) Urine Blood 1+ H (NEGATIVE) Urine Nitrate POSITIVE H (NEGATIVE) Urine Bilirubin NEGATIVE (NEGATIVE) Urine Urobilinogen NEGATIVE EU EU (0.2-1.0) Ur Leukocyte Esterase 2+ H (NEGATIVE) Urine RBC 5-10 /hpf H /hpf (0-3) Urine WBC 15-25 /hpf H /hpf (0-3) Ur Epithelial Cells NONE SEEN /lpf /lpf (NONE-1+) Urine Bacteria 2+ /hpf H /hpf (NONE SEEN) Urine Mucus TRACE /lpf /lpf (NONE-1+) Urine Glucose 2+ H (NEGATIVE) Medications Given: Discontinued Medications Levofloxacin (Levaquin) 750 mg PO EDNOW ONE PRN Reason: Protocol Stop: 09/07/17 16:11 Last Admin: 09/07/17 16:41 Dose: 750 mg Trimethoprim/Sulfamethoxazole (Bactrim Ds) 1 ea PO EDNOW ONE PRN Reason: Protocol Stop: 09/07/17 16:11 Last Admin: 09/07/17 16:41 Dose: 1 ea Departure - Departure Disposition: Home, Routine, Self-Care Clinical Impression: Urinary tract infection Qualifiers: Urinary tract infection type: acute cystitis Hematuria presence: without hematuria Qualified Code(s): N30.00 - Acute cystitis without hematuria Condition: Fair Instructions: Urinary Tract Infection in Men (ED) Referrals: [facility],. [Primary Care Provider] - 1-2 days without fail Prescriptions: levOFLOXACIN [levAQUIN] 750 mg PO DAILY #10 tab Sulfamethox/Tmp 800/160 mg [Bactrim Ds] 1 tab PO BID #14 tab
== END 2017-09-07 16:48 | disposition home or self-care (01) ==
DX: N30.00 Acute cystitis without hematuria (principal); B96.1 Klebsiella pneumoniae [K. pneumoniae] as the cause of diseases classified elsewhere; E11.9 Type 2 diabetes mellitus without complications; Z79.4 Long term (current) use of insulin

== ENCOUNTER 2017-09-16 18:05 | Emergency (ER) | payer OTHER, MEDICAID ==
[2017-09-16 18:18] VITALS: O2SAT 97
[2017-09-16] MEDS ORDERED: CEPHALEXIN 500MG PREPACK#4 BTL TAKEHOME ONE (19:59)
--- NOTE | 2017-09-16 20:00 | EDPHY ---
H & P Time Seen by Provider: 09/16/17 19:36 HPI/ROS: CHIEF COMPLAINT: Possible urinary tract infection HISTORY OF PRESENT ILLNESS: 47-year-old male, T4 paraplegic who self caths, presents reporting ongoing bladder irritation. Patient was seen in the emergency department on the 07 of September with symptoms related to urinary tract infection. At that time he was placed on Bactrim and levofloxacin. Cultures demonstrate Klebsiella infection with some resistance to levofloxacin but sensitive to Bactrim. Patient reports they did contact him until he should stop taking the levofloxacin but continue on the Bactrim. He has done so but reports ongoing symptoms of bladder irritation. Patient states he can sense when he needs to self cath, when he has bladder fullness. He has not had a fever. He has not had vomiting. He does report some intermittent chills. Also notes that he has been using increased doses of insulin as his diabetes seems to be more difficult to control and he has had high glucose readings. Patient is concerned that his urinary tract infection might not have cleared. Of note, he does take a daily medication which he cannot recall to sit if I the urine and prevent frequent UTIs. He has been out of this for the last several days. No fever, chest pain, shortness of breath, palpitations, vomiting, diarrhea, headache, lightheadedness. REVIEW OF SYSTEMS: Aside from elements discussed in the HPI, a comprehensive 10-point review of systems was reviewed and is negative. PAST MEDICAL HISTORY: T4 paraplegic, bladder augmentation, self catheterization , diabetes. SOCIAL HISTORY: Nonsmoker. VITAL SIGNS: see nurse's notes. GENERAL: Well-developed, well-nourished, in no acute distress. HEENT: Normal, benign, moist mucous membranes. Neck: supple, FROM. LUNGS: Clear to auscultation bilaterally, no wheezes, rhonchi or rales. CARDIAC: Regular rate and rhythm, no rubs, murmurs or gallops. ABDOMEN: Soft, nontender, nondistended, bowel sounds normal. BACK: No CVA tenderness. No vertebral tenderness. EXTREMITIES: In a wheelchair, no acute deformities. NEURO: Alert and oriented, grossly nonfocal. SKIN: Warm and dry, no rash. Smoking Status: Never smoked Constitutional: Initial Vital Signs Temperature (C) 36.9 C 09/16/17 18:10 Heart Rate 97 09/16/17 18:10 Respiratory Rate 18 09/16/17 18:10 Blood Pressure 116/69 09/16/17 18:10 O2 Sat (%) 97 09/16/17 18:10 O2 Delivery Mode Room Air Allergies/Adverse Reactions: ceftriaxone sodium [From Rocephin] Allergy (Severe, Verified 09/16/17 18:15) Anaphylaxis Penicillins Allergy (Severe, Verified 09/16/17 18:15) Swelling/neck,face,throat Home Medications: Medication Instructions Recorded traZODone [traZODone 150MG (*)] 150 mg PO HS 08/05/15 Baclofen 0 mg SC DAILY 05/03/17 Insulin Aspart [novoLOG] 0 units SC DAILY 07/28/17 Cephalexin [Keflex (RX)] 500 mg PO TID 7 Days #21 cap 09/16/17 Insulin Aspart [novoLOG] 1 vial SC AC #1 vial 09/16/17 Phenazopyridine HCl [Pyridium] 200 mg PO BID PRN #20 tab 09/16/17 Medical Decision Making ED Course/Re-evaluation: Patient's urinalysis here demonstrates trace ketones and 3+ glucose. There is no signs of urinary tract infection. Laboratory evaluation : No leukocytosis. Glucose is 153, CO2 was 18 indicating potential mild DKA, patient has had no vomiting. He feels comfortable being discharged home to continue to take insulin as needed for glucose readings, has an appointment with Endocrinology tomorrow and will follow -up as directed. He was encouraged to drink plenty of fluid. Differential Diagnosis: Differential diagnoses for the patient's symptom complex was considered including but not limited to hyperglycemia, urinary tract infection, hemorrhagic cystitis, bladder spasm, DKA, septicemia. - Data Points Laboratory Results: Laboratory Results 09/16/17 20:10 09/16/17 20:10 09/16/17 09/16/17 09/16/17 20:10 20:10 18:20 WBC 9.15 10^3/uL 10^3/uL (3.80-9.50) RBC 4.88 10^6/uL 10^6/uL (4.40-6.38) Hgb 15.4 g/dL g/dL (13.7-17.5) Hct 44.4 % % (40.0-51.0) MCV 91.0 fL fL (81.5-99.8) MCH 31.6 pg pg (27.9-34.1) MCHC 34.7 g/dL g/dL (32.4-36.7) RDW 12.8 % % (11.5-15.2) Plt Count 249 10^3/uL 10^3/uL (150-400) MPV 8.8 fL fL (8.7-11.7) Neut % (Auto) 63.7 % % (39.3-74.2) Lymph % (Auto) 28.9 % % (15.0-45.0) [place] % (Auto) 4.3 % L % (4.5-13.0) Eos % (Auto) 2.3 % % (0.6-7.6) Baso % (Auto) 0.5 % % (0.3-1.7) Nucleat RBC Rel Count 0.0 % % (0.0-0.2) Absolute Neuts (auto) 5.83 10^3/uL 10^3/uL (1.70-6.50) Absolute Lymphs (auto) 2.64 10^3/uL 10^3/uL (1.00-3.00) Absolute Monos (auto) 0.39 10^3/uL 10^3/uL (0.30-0.80) Absolute Eos (auto) 0.21 10^3/uL 10^3/uL (0.03-0.40) Absolute Basos (auto) 0.05 10^3/uL 10^3/uL (0.02-0.10) Absolute Nucleated RBC 0.00 10^3/uL 10^3/uL (0-0.01) Immature Gran % 0.3 % % (0.0-1.1) Immature Gran # 0.03 10^3/uL 10^3/uL (0.00-0.10) Sodium 137 mEq/L mEq/L (135-145) Potassium 4.4 mEq/L mEq/L (3.5-5.2) Chloride 106 mEq/L mEq/L (97-110) Carbon Dioxide 18 mEq/l L mEq/l (22-31) Anion Gap 13 mEq/L mEq/L (8-16) BUN 21 mg/dL mg/dL (7-23) Creatinine 0.8 mg/dL mg/dL (0.7-1.3) Estimated GFR > 60 Glucose 153 mg/dL H mg/dL (70-100) Calcium 9.0 mg/dL mg/dL (8.5-10.4) Urine Color PALE YELLOW Urine Appearance CLEAR Urine pH 6.0 (5.0-7.5) Ur Specific [place] 1.017 (1.002-1.030) Urine Protein NEGATIVE (NEGATIVE) Urine Ketones TRACE H (NEGATIVE) Urine Blood NEGATIVE (NEGATIVE) Urine Nitrate NEGATIVE (NEGATIVE) Urine Bilirubin NEGATIVE (NEGATIVE) Urine Urobilinogen NEGATIVE EU EU (0.2-1.0) Ur Leukocyte Esterase NEGATIVE (NEGATIVE) Urine RBC 1-3 /hpf /hpf (0-3) Urine WBC 1-3 /hpf /hpf (0-3) Ur Epithelial Cells TRACE /lpf /lpf (NONE-1+) Urine Glucose 3+ H (NEGATIVE) Medications Given: Discontinued Medications Cephalexin (Keflex 500 Mg Prepack#4) 1 btl TAKEHOME EDNOW ONE PRN Reason: Protocol Stop: 09/16/17 20:00 Last Admin: 09/16/17 21:01 Dose: Not Given Departure - Departure Disposition: Home, Routine, Self-Care Clinical Impression: Bladder spasm, Hyperglycemia Condition: Good Instructions: Diabetic Hyperglycemia (ED) Additional Instructions: Please follow up tomorrow with endocrinology as already scheduled. There is no evidence of a urinary tract infection on today's urine sample. Complete your Bactrim as previously prescribed. Follow up with your urologist concerning your ongoing bladder spasms and discomfort. Consider taking Pyridium for bladder discomfort. Referrals: Leonora Grove, PAC [Primary Care Provider] - As per Instructions Prescriptions: Cephalexin [Keflex (RX)] 500 mg PO TID 7 Days #21 cap Insulin Aspart [novoLOG] 1 vial SC AC #1 vial Phenazopyridine HCl [Pyridium] 200 mg PO BID PRN #20 tab PRN Reason: bladder pain
[2017-09-16 20:23] LABS: PLATELET COUNT 249 10^3/uL (150-400)
[2017-09-16 21:03] VITALS: BP 122/72; PULSE 70; RESP 16; TEMP 97.9
== END 2017-09-16 20:58 | disposition home or self-care (01) ==
DX: N32.89 Other specified disorders of bladder (principal); E11.65 Type 2 diabetes mellitus with hyperglycemia; Z79.4 Long term (current) use of insulin

== ENCOUNTER 2017-10-09 13:25 | Emergency (ER) | payer OTHER, MEDICAID ==
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
[2017-10-09 15:24] VITALS: BP 124/78
== END 2017-10-09 15:25 | disposition home or self-care (01) ==
DX: T83.511A Infection and inflammatory reaction due to indwelling urethral catheter, initial encounter (principal); B96.1 Klebsiella pneumoniae [K. pneumoniae] as the cause of diseases classified elsewhere; G82.20 Paraplegia, unspecified; Y82.8 Other medical devices associated with adverse incidents

== ENCOUNTER 2018-11-01 11:09 | Emergency (ER) | payer OTHER, MEDICAID ==
--- NOTE | 2018-11-01 11:16 | EDPHY ---
H & P Time Seen by Provider: 11/01/18 11:10 HPI/ROS: Chief complaint. Limited trauma activation HPI. Patient is 48-year-old male wheelchair bound as he is paraplegic. Hears he is here by EMS after falling backwards out of his wheelchair. He apparently struck his head and lost consciousness. He complains of neck pain. He says that his arms went numb and weak briefly but now our totally normal. No other injuries. He did sustained laceration to back of his scalp. Injury occurred just prior to arrival ROS 10 systems were reviewed and negative with the exception of the elements mentioned in the history of present illness Past Medical/Surgical History: Paraplegia and diabetes Social History: Single, nonsmoker, no alcohol Smoking Status: Never smoked Physical Exam: General Appearance: Alert pleasant well-developed male mild distress vitals are stable Eyes: Pupils equal and round no pallor or injection. ENT, no hemotympanum or Villeda sign. No oral pharyngeal or dental trauma. Laceration to the scalp Respiratory: There are no retractions, lungs are clear to auscultation. Cardiovascular: Regular rate and rhythm. Gastrointestinal: Abdomen is soft and nontender, no masses, bowel sounds normal. Neurological: Awake and alert, sensory and motor exams grossly normal in the arms. Patient is T4 paraplegia from chest down. No change in these findings. Skin: Warm and dry, no rashes. Musculoskeletal: Neck is diffusely tender. Extremities symmetrical, full range of motion. Psychiatric: Patient is oriented X 3, there is no agitation. Constitutional: Initial Vital Signs Temperature (C) 36.7 C 11/01/18 11:17 Heart Rate 66 11/01/18 11:17 Respiratory Rate 16 11/01/18 11:17 Blood Pressure 140/88 H 11/01/18 11:17 O2 Sat (%) 96 11/01/18 11:17 O2 Delivery Mode Room Air Allergies/Adverse Reactions: ceftriaxone sodium [From Rocephin] Allergy (Severe, Verified 11/01/18 11:25) Anaphylaxis Penicillins Allergy (Severe, Verified 11/01/18 11:25) Swelling/neck,face,throat Home Medications: Medication Instructions Recorded traZODone [traZODone 150MG (*)] 150 mg PO HS 08/05/15 Baclofen 0 mg SC DAILY 05/03/17 Insulin Aspart [novoLOG] 0 units SC DAILY 07/28/17 Insulin Aspart [novoLOG] 1 vial SC AC #1 vial 09/16/17 Cephalexin [Keflex (*)] 500 mg PO Q6H #28 cap 10/09/17 Sulfamethox/Tmp 800/160 mg 1 tab PO BID #14 tab 10/09/17 [Bactrim Ds] Medical Decision Making - Diagnostics Imaging Results: Imaging Impressions Cervical Spine CT 11/01/18 11:16 Impression: 1. No acute posttraumatic abnormality identified. If there is persistent pain or neurologic deficit, consider MRI and/or flexion and extension views if clinically indicated. 2. Multilevel degenerative change as above with trace anterolisthesis of C2 on C3. 3. Mild anterior subluxation of the temporomandibular joints. Findings discussed with Dr. Galindo Cruz on 11/01/2018 at 12:31. Head CT 11/01/18 11:16 Impression: Scalp laceration with no acute intracranial findings. Findings discussed with GALINDO CRUZ 11/01/2018 at 12:31. CT head and cervical spine negative for trauma Procedures: Procedure: Laceration repair. Verbal consent was obtained from the patient. The 2.5 cm laceration on the occipital scalp was anesthetized in the usual fashion. The wound was irrigated , draped and explored to its base with a gloved finger. There were no deep structures involved. No tendon injury was identified. The wound was repaired with three 4-0 prolene sutures. The wound repair was simple. The procedure was performed by myself. ED Course/Re-evaluation: Re-evaluation patient is stable. He and I discussed imaging lab results. We discussed treatment plan including criteria for return importance of follow-up and further evaluation. He expresses understanding and agreement Differential Diagnosis: Scalp laceration and head trauma after falling backwards at a wheelchair. Transient sense of numbness and weakness to arms however quickly returned and has remained normal. No evidence of intracranial bleeding or skull fracture - Data Points Medications Given: Discontinued Medications Acetaminophen (Tylenol) 1,000 mg PO EDNOW ONE Stop: 11/01/18 12:22 Last Admin: 11/01/18 12:23 Dose: 1,000 mg Departure - Departure Disposition: Home, Routine, Self-Care Clinical Impression: Scalp laceration Qualifiers: Encounter type: initial encounter Qualified Code(s): S01.01XA - Laceration without foreign body of scalp, initial encounter Condition: Good Instructions: Care For Your Stitches (ED) Additional Instructions: You may shower and wash your hair with stitches in Ice to stay sore area of head and neck Return for worsening headache, confusion, signs of infection Stitches out 1 week Referrals: Patient,NotPresent [Unknown] - As per Instructions
[2018-11-01] MEDS ORDERED: ACETAMINOPHEN 500 MG TAB PO ONE (12:21)
[2018-11-01 14:27] VITALS: BP 131/90
== END 2018-11-01 14:26 | disposition home or self-care (01) ==
LOC: EDUNIT#
PROC: 0HQ0XZZ Repair Scalp Skin, External Approach (ICD-10-PCS; principal; 2018-11-01)
DX: S01.01XA Laceration without foreign body of scalp, initial encounter (principal); G82.20 Paraplegia, unspecified; E11.9 Type 2 diabetes mellitus without complications; Z99.3 Dependence on wheelchair; W05.0XXA Fall from non-moving wheelchair, initial encounter

== ENCOUNTER 2018-11-22 07:57 | Emergency (ER) | payer OTHER, MEDICAID ==
[2018-11-22 08:04] VITALS: BP 142/77
--- NOTE | 2018-11-22 08:31 | EDPHY ---
H & P Time Seen by Provider: 11/22/18 08:09 HPI/ROS: CHIEF COMPLAINT: Have a splinter my finger HISTORY OF PRESENT ILLNESS: 48-year-old male, diabetic, T4 paraplegic, wheelchair-bound, presents with a splinter to the pad of his index finger. This occurred yesterday when he was running his hand along a wooden garden box. No other injuries REVIEW OF SYSTEMS: A comprehensive 10 system review of systems was reviewed and is otherwise negative aside from elements mentioned in the history of present illness and medical decision making. PAST MEDICAL HISTORY: Diabetes, T4 paraplegia SOCIAL HISTORY: Nonsmoker GENERAL APPEARANCE: No acute distress, pleasant, reports he was unable to remove the splinter himself. FOCUSED EXAM OF right index finger: Small wood splinter is visible on the pad of the finger. No bleeding. Normal sensation. Brisk capillary refill. Neurovascular exam: Good capillary refill, normal motor exam, normal neurologic exam. Smoking Status: Never smoked Constitutional: Initial Vital Signs Temperature (C) 36.5 C 11/22/18 08:02 Heart Rate 78 11/22/18 08:02 Respiratory Rate 16 11/22/18 08:02 Blood Pressure 142/77 H 11/22/18 08:02 O2 Sat (%) 96 11/22/18 08:02 O2 Delivery Mode Room Air Allergies/Adverse Reactions: ceftriaxone sodium [From Rocephin] Allergy (Severe, Verified 11/22/18 08:02) Anaphylaxis Penicillins Allergy (Severe, Verified 11/22/18 08:02) Swelling/neck,face,throat Home Medications: Medication Instructions Recorded traZODone [traZODone 150MG (*)] 150 mg PO HS 08/05/15 Baclofen 0 mg SC DAILY 05/03/17 Insulin Aspart [novoLOG] 0 units SC DAILY 07/28/17 Insulin Aspart [novoLOG] 1 vial SC AC #1 vial 09/16/17 MDM/Departure - MDM Procedures: Procedure: Index finger was infiltrated with a small amount of lidocaine without epinephrine. Foreign body was removed using splinter forceps. Patient tolerated it well. No residual foreign body was seen or felt following the procedure. Local wound care. Band-Aid. Follow-up as needed Differential Diagnosis: Differential diagnosis considered: cellulitis, foreign body, retained foreign body, infection. - Depart Disposition: Home, Routine, Self-Care Clinical Impression: Foreign body in soft tissue Condition: Good Instructions: Soft Tissue Foreign Body (ED) Additional Instructions: Keep clean and dry. Watch for signs of infection. Referrals: Leonora Grove PAC [Primary Care Provider] - As per Instructions
== END 2018-11-22 08:41 | disposition home or self-care (01) ==
DX: L08.9 Local infection of the skin and subcutaneous tissue, unspecified (principal); G82.20 Paraplegia, unspecified; E11.9 Type 2 diabetes mellitus without complications; Z99.3 Dependence on wheelchair; Z79.4 Long term (current) use of insulin